=== PATIENT | male | born 1990 | race Caucasian/White ===

== ENCOUNTER → 2019-11-10 12:25 | Outpatient (CLI) | payer OTHER, SELFPAY ==
[2019-11-11 07:28] LABS: SARS-COV-2 TOTAL ABS Nonreactive (Nonreactive)
== END ==
LOC: LABSPEC 12:27 → LAB 12:28
PROVIDERS: PCP Family Medicine; Referring Provider Family Medicine; Visit Provider Family Medicine
DX: Z03.818 Encounter for observation for suspected exposure to other biological agents ruled out (principal)
CPT/HCPCS: 86769; 87635; G2023; U0003